=== PATIENT | male | born 1960 | race Caucasian/White ===

== ENCOUNTER 2017-03-31 07:09 | Emergency (ER) | payer MEDICAID ==
[~2017-03-31] VITALS: Ht 172.7 cm; Wt 90.7 kg
[~2017-03-31 07:09] MED LIST: ? CHOLESTEROL MED; ACTICIN 5% CREA60 G1 TOP; ALBUTEROL2.5 MG/31 INH; AZITHROMYCIN 2250 MG PO; BACTRIM DS TAB1 EACH PO; BACTROBAN CREAM30 G1 TOP; BACTROBAN CREAM30 G2 TOP; BACTROBAN NASAL1 GM TOP; BACTROBAN15 GM TP; BACTROBAN22 GM TP; CHLORHEXADINE120 ML TP; DOXYCYCLINE 10100 MG PO; FLEXERIL PO; KEFLEX500 MG PO; KETOCONAZOLE60 GM TP; LAMISIL AT 1% C12 G1 TP; NORCO 5-325 TA1 EACH PO; PREDNISONE 20 M20 M1 PO; PROAIR HFA8.5 GM IH; PROAIR HFA8.5 GM INH; TRIAMCINOLONE A15 G1 TP; TRIAMCINOLONE A80 G2 TOP; VENTOLIN HFA INH8 GM IH; VICODIN 5-5001 EACH PO; WELCHOL 625 MG625 M1 PO; ZPAK PO; [UNRECOGNIZED DRUG - OTHER] MC; [UNRECOGNIZED DRUG - REMARK]; [UNRECOGNIZED DRUG - REMARK]
[2017-03-31] MEDS ORDERED: PREDNISONE 20 M20 M1 PO (07:51)
[2017-03-31] MEDS ORDERED: BACTRIM DS TAB1 EACH PO (07:51)
[2017-03-31 08:00] VITALS: BP 145/78
== END 2017-03-31 08:00 | disposition home or self-care (01) ==
LOC: M.ERS 07:09
DX: J06.9 Acute upper respiratory infection, unspecified (principal); E78.00 Pure hypercholesterolemia, unspecified; K21.9 Gastro-esophageal reflux disease without esophagitis; F17.210 Nicotine dependence, cigarettes, uncomplicated

== ENCOUNTER 2017-06-09 10:02 | Emergency (ER) | payer MEDICAID ==
[~2017-06-09] VITALS: Ht 175.3 cm; Wt 102.1 kg
[2017-06-09 10:32] VITALS: BP 132/81
[2017-06-09] MEDS ORDERED: BACTROBAN CREAM30 G1 TOP (10:32)
== END 2017-06-09 10:42 | disposition home or self-care (01) ==
LOC: M.ERS 10:02
DX: S61.402A Unspecified open wound of left hand, initial encounter (principal); S61.401A Unspecified open wound of right hand, initial encounter; E78.00 Pure hypercholesterolemia, unspecified; K21.9 Gastro-esophageal reflux disease without esophagitis; F17.210 Nicotine dependence, cigarettes, uncomplicated; X58.XXXA Exposure to other specified factors, initial encounter; Y93.89 Activity, other specified; Y92.89 Other specified places as the place of occurrence of the external cause; Y99.8 Other external cause status

== ENCOUNTER 2017-06-25 16:56 | Emergency (ER) | payer MEDICAID ==
[~2017-06-25] VITALS: Ht 175.3 cm; Wt 90.7 kg
[2017-06-25] MEDS ORDERED: KEFLEX500 M1 PO (17:19)
[2017-06-25] MEDS ORDERED: SSD CREAM 1% 5050 GM TOP (17:19)
[2017-06-25] MEDS ORDERED: BACTRIM DS TAB1 EACH PO (17:19)
[2017-06-25 17:42] VITALS: BP 159/78
== END 2017-06-25 17:43 | disposition home or self-care (01) ==
LOC: M.ERS 16:56
DX: T25.221A Burn of second degree of right foot, initial encounter (principal); K21.9 Gastro-esophageal reflux disease without esophagitis; E78.00 Pure hypercholesterolemia, unspecified; F17.210 Nicotine dependence, cigarettes, uncomplicated; X10.0XXA Contact with hot drinks, initial encounter; Y93.89 Activity, other specified; Y92.89 Other specified places as the place of occurrence of the external cause; Y99.8 Other external cause status

== ENCOUNTER 2017-12-19 08:15 | Emergency (ER) | payer MEDICAID ==
[~2017-12-19] VITALS: Ht 180.3 cm; Wt 95.3 kg
[~2017-12-19 08:15] MED LIST changes: +KEFLEX500 M1 PO; +SSD CREAM 1% 5050 GM TOP
[2017-12-19 08:24] VITALS: BP 139/80
[2017-12-19] MEDS ORDERED: CENTANY30 GM TOP (08:32)
== END 2017-12-19 08:35 | disposition home or self-care (01) ==
LOC: M.ERS 08:15
DX: L98.498 Non-pressure chronic ulcer of skin of other sites with other specified severity (principal); K21.9 Gastro-esophageal reflux disease without esophagitis; E78.00 Pure hypercholesterolemia, unspecified; F17.210 Nicotine dependence, cigarettes, uncomplicated

== ENCOUNTER 2020-08-24 06:07 | Emergency (ER) | payer MEDICAID ==
[~2020-08-24] VITALS: Ht 175.3 cm; Wt 90.7 kg
[~2020-08-24 06:07] MED LIST changes: +CENTANY30 GM TOP
[2020-08-24] MEDS ORDERED: IBUPROFEN 600600 M1 PO (06:47)
[2020-08-24] MEDS ORDERED: BACTRIM DS TAB1 EACH PO (06:47)
[2020-08-24 06:55] VITALS: BP 144/68
== END 2020-08-24 06:55 | disposition home or self-care (01) ==
LOC: M.ERS 06:07
DX: L02.414 Cutaneous abscess of left upper limb (principal); F17.210 Nicotine dependence, cigarettes, uncomplicated; K21.9 Gastro-esophageal reflux disease without esophagitis; Z79.899 Other long term (current) drug therapy

== ENCOUNTER 2020-08-25 09:06 | Emergency (ER) | payer MEDICAID ==
[~2020-08-25] VITALS: Ht 175.3 cm; Wt 90.7 kg
[~2020-08-25 09:06] MED LIST changes: +IBUPROFEN 600600 M1 PO
[2020-08-25 10:06] VITALS: BP 126/67
== END 2020-08-25 10:07 | disposition home or self-care (01) ==
LOC: M.ERS 09:06
DX: L02.414 Cutaneous abscess of left upper limb (principal); B07.8 Other viral warts; K21.9 Gastro-esophageal reflux disease without esophagitis; F17.210 Nicotine dependence, cigarettes, uncomplicated; Z79.899 Other long term (current) drug therapy

== ENCOUNTER 2020-09-22 08:52 | Emergency (ER) | payer MEDICAID ==
[~2020-09-22] VITALS: Ht 175.3 cm; Wt 90.7 kg
[2020-09-22 09:28] LABS: ABSOLUTE BASOPHILS 0.1 thou/uL (0.0-0.2); ABSOLUTE EOSINOPHILS 0.1 thou/uL (0.0-0.7); ABSOLUTE LYMPHOCYTES 1.5 thou/uL (0.8-5.3); ABSOLUTE MONOCYTES 1.1 thou/uL (0.0-1.2); ABSOLUTE NEUTROPHILS 7.9 thou/uL (1.6-8.1); BASOPHILS 0.5 %; HEMATOCRIT 43.2 % (42.0-52.0); HEMOGLOBIN 15.1 gm/dL (14.0-18.0); LYMPHOCYTES 14.4 %; MCH 29.8 pg (26.0-34.0); MCHC 34.9 g/dL (28.0-37.0); MCV 85.2 fL (80.0-100.0); MPV 7.2 fl. (7.2-11.1); NUCLEATED RBCS 0 /100WBC; PLATELET COUNT* 214 thou/uL (150-400); POLYS 74.1 %; RBC 5.07 mil/uL (4.50-6.00); RDW-CV 13.9 % (10.5-14.5); WBC 10.7 thou/uL (4.0-11.0)
[2020-09-22 10:08] LABS: SOURCE ELBOW; TOTAL VOLUME 0.5 ml
[2020-09-22 10:09] LABS: BF EOSINOPHILS ND %; BF LYMPHOCYTES ND %; BF MONOCYTES ND %; BF OTHER ND; BF POLYS ND %; BF RBC 22 /mm3; BF TISSUE ND /100 WBC; BODY FLUID BANDS ND %; CLARITY CLEAR
[2020-09-22 10:10] LABS: TOTAL CELL COUNT <10 /mm3
[2020-09-22] MEDS ORDERED: HYDROCODON-ACE1 EAC7 PO (10:40)
[2020-09-22] MEDS ORDERED: IBUPROFEN 800800 M1 PO (10:40)
[2020-09-22] MEDS ORDERED: BACTRIM DS TAB1 EAC1 PO (10:40)
[2020-09-22 10:48] VITALS: BP 145/81
[2020-09-22 11:08] LABS: ESR (SEDRATE) 20 mm/hr (0-20)
== END 2020-09-22 10:50 | disposition home or self-care (01) ==
LOC: M.ERS 08:52
PROVIDERS: Emergency Medicine Emergency Medical Services
DX: M70.21 Olecranon bursitis, right elbow (principal); K21.9 Gastro-esophageal reflux disease without esophagitis; F17.210 Nicotine dependence, cigarettes, uncomplicated; Z79.899 Other long term (current) drug therapy

== ENCOUNTER 2020-10-06 10:27 | Emergency (ER) | payer MEDICAID ==
[~2020-10-06] VITALS: Ht 175.3 cm; Wt 90.7 kg
[~2020-10-06 10:27] MED LIST changes: +BACTRIM DS TAB1 EAC1 PO; +HYDROCODON-ACE1 EAC7 PO; +IBUPROFEN 800800 M1 PO
[2020-10-06] MEDS ORDERED: DOXYCYCLINE 10100 MG PO (11:00)
[2020-10-06] MEDS ORDERED: CENTANY30 GM TOP (11:00)
[2020-10-06] MEDS ORDERED: CEPHALEXIN500 MG PO (11:00)
[2020-10-06 11:30] VITALS: BP 134/72
== END 2020-10-06 11:30 | disposition home or self-care (01) ==
LOC: M.ERS 10:27
DX: L08.89 Other specified local infections of the skin and subcutaneous tissue (principal); L53.8 Other specified erythematous conditions; F17.210 Nicotine dependence, cigarettes, uncomplicated; K21.9 Gastro-esophageal reflux disease without esophagitis; E78.00 Pure hypercholesterolemia, unspecified; Z79.899 Other long term (current) drug therapy